=== PATIENT | male | born 1950 | race Caucasian/White ===

== ENCOUNTER 2023-10-22 07:48 | Day surgery (SDC) | payer MEDICARE ==
[~2023-10-22] VITALS: Ht 177.8 cm; Wt 108.7 kg
[~2023-10-22 07:48] MED LIST: AMLO5 PO; ASPI325 PO; Crestor5 MG PO; LOSHYD100 PO; METO50ER PO; NITR.4SL SL; OLME20; ROSU5; ROSU5 PO; TIROSINT50 MCG PO
[2023-10-22] MEDS ORDERED: LOSA25 (08:13)
[2023-10-22 10:25] VITALS: BP 109/50
== END 2023-10-22 10:26 | disposition home or self-care (01) ==
LOC: ORSCSDS 07:48
DX: Z12.11 Encounter for screening for malignant neoplasm of colon (principal); Z86.010 Personal history of colon polyps; D12.5 Benign neoplasm of sigmoid colon; D12.2 Benign neoplasm of ascending colon; D12.4 Benign neoplasm of descending colon; K57.30 Diverticulosis of large intestine without perforation or abscess without bleeding; K55.20 Angiodysplasia of colon without hemorrhage; I10 Essential (primary) hypertension; R12 Heartburn; I25.2 Old myocardial infarction; I25.10 Atherosclerotic heart disease of native coronary artery without angina pectoris; G47.33 Obstructive sleep apnea (adult) (pediatric); E66.9 Obesity, unspecified; Z68.34 Body mass index [BMI] 34.0-34.9, adult; Z87.891 Personal history of nicotine dependence; Z79.82 Long term (current) use of aspirin; Z79.899 Other long term (current) drug therapy
CPT/HCPCS: 88305; J2704; J7120

== ENCOUNTER → 2024-03-18 | Outpatient (CLI) | payer OTHER | END | disposition home or self-care (01) | LOC: LAB 11:35 → LAB SHORT 11:35 | DX: M70.031 Crepitant synovitis (acute) (chronic), right wrist (principal) ==